=== PATIENT | female | born 1960 | race Caucasian/White ===

== ENCOUNTER 2017-11-08 06:02 | Observation (INO) | payer BC ==
[~2017-11-08 06:02] MED LIST: Buffered Lidocaine 0.9% SYRIN* 5 ML/SYR SYRINGE INTRADERM ONE; Dexamethasone IV* 4 MG/ML 1 ML (4 MG) IV SLOW PU ONE; Famotidine IV* 10 MG/ML 2 ML (20 mg) IV ONE
[2017-11-08] MEDS ORDERED: Famotidine IV* 10 MG/ML 2 ML (20 mg) ONE (06:08)
[2017-11-08] MEDS ORDERED: Dexamethasone IV* 4 MG/ML 1 ML (4 MG) ONE (06:08)
[2017-11-08] MEDS ORDERED: Buffered Lidocaine 0.9% SYRIN* 5 ML/SYR SYRINGE ONE (06:08)
[2017-11-08] MEDS ORDERED: ceFAZolin 2 GM PREMIX (*) 2 GM/50 ML BAG IVPB ONE (06:09)
[2017-11-08] MEDS ORDERED: Lidocaine 1% MPF wEPI 200,000* 30 ML SDV ONE (07:21)
[2017-11-08] MEDS ORDERED: Thrombin 5,000 UNITS* 1 APPLIC KIT - topical use - TOPICAL ONE (07:21)
[2017-11-08] MEDS ORDERED: Bacitracin IV* 50,000 UNITS INJ ONE (07:21)
[2017-11-08] MEDS ORDERED: fentaNYL* 50 MCG/ML 5 ML VIAL (250 MCG VIAL) ONE (07:23)
[2017-11-08] MEDS ORDERED: Ondansetron INJ* 2 MG/ML VIAL ONE (07:23)
[2017-11-08] MEDS ORDERED: Propofol* 10 MG/ML 20 ML BTL IV PUSH ONE (07:23)
[2017-11-08] MEDS ORDERED: Midazolam* 1 MG/ML 10 ML VIAL (10 MG) ONE (07:23)
[2017-11-08] MEDS ORDERED: Atracurium* 10 MG/ML 10 ML VIAL ONE (07:23)
[2017-11-08] MEDS ORDERED: Lidocaine 2% PF * 5 ML VIAL ONE (07:23)
[2017-11-08] MEDS ORDERED: fentaNYL* 50 MCG/ML 2 ML VIAL (100 MCG VIAL) ONE (09:19)
[2017-11-08] MEDS ORDERED: Glycopyrrolate IV* 0.2 MG/ML 1 ML VIAL ONE (09:20)
[2017-11-08] MEDS ORDERED: EPHEDrine (Pressors)* 50 MG/ML VIAL ONE (09:25)
[2017-11-08] MEDS ORDERED: DiMENhydriNATE IV* 50 MG/ML VIAL IV PUSH PRN (09:58)
[2017-11-08] MEDS ORDERED: Ondansetron INJ* 2 MG/ML VIAL IV PRN ×2 (09:58→11:15)
[2017-11-08] MEDS ORDERED: oxyCODONE/Acetamin 5/325 MG* TAB PO PRN (09:58)
[2017-11-08] MEDS ORDERED: fentaNYL* 50 MCG/ML 2 ML VIAL (100 MCG VIAL) IV PRN (09:58)
[2017-11-08] MEDS ORDERED: Scopolamine 1.5 mg* PATCH TRANSDERM PRN (09:58)
[2017-11-08] MEDS ORDERED: Magnesium Hydroxide LIQ* 30 ML UDC PO PRN (11:15)
[2017-11-08] MEDS ORDERED: Acetaminophen TAB* 325 MG PO PRN (11:15)
[2017-11-08] MEDS ORDERED: HYDROcodone/ACETAMIN 5-325 MG* 1 TAB PO PRN (11:19)
[2017-11-08] MEDS ORDERED: HYDROmorphone INJ* 1 MG/ML CARPUJECT SYRINGE ONE (11:24)
[2017-11-08] MEDS: HYDROmorphone INJ* 1 MG/ML CARPUJECT SYRINGE IV PRN ×5 (11:28→11:57)
--- NOTE | 2017-11-08 11:53 | RAD ---
CPT II Codes: 6045F INDICATION: Intraoperative lumbar discectomy. Fluoroscopic services provided for referring physician. 4 spot images demonstrates localization of L3-L4 interspace. 28 seconds of fluoroscopy time was used. IMPRESSION: Localization of the L3-L4 interspace.
[2017-11-08] MEDS ORDERED: HYDROcodone/ACETAMIN 5-325 MG* 1 TAB ONE (13:22)
[2017-11-08] MEDS: HYDROcodone/ACETAMIN 5-325 MG* 1 TAB PO PRN ×3 (13:23→22:19)
[2017-11-09] MEDS: HYDROcodone/ACETAMIN 5-325 MG* 1 TAB PO PRN ×3 (04:13→11:59)
[2017-11-09] MEDS ORDERED: amLODIPine TAB* 5 MG PO SCH (09:00)
--- NOTE | 2017-11-09 11:01 | PN ---
Progress Note - Progress Note Date of Service: 11/09/17 SOAP: Subjective: []No events ON. LLE pain resolved. Ambulates well. Voids. Tolerates PO well. Patient very satisfied with results of operation and wants to go home. Objective: []VSS, Afebrile. Wound s,c,d AAOx3 LAKSHMI, CN II-XII grossly intact Motor 5/5 all extremities. Sensory grossly intact to light touch. Assessment: []57 yo f POD#1 Left far lateral discectomy Plan: []Encourage ambulation DC today. Full instructions were given to patient.
[2017-11-09 11:45] VITALS: BP 115/67
--- NOTE | 2017-11-09 15:31 | OP ---
OPERATIVE REPORT: DATE OF OPERATION: 11/08/17 DATE OF : 62 SURGEON: Marco Abreu MD DATA ANALYSIS INTERN: DORIS Villasenor ANESTHESIA: General. PRE-OP DIAGNOSIS: Left L3-4 herniated nucleus pulposus. POST-OP DIAGNOSIS: Left L3-4 herniated nucleus pulposus. OPERATIVE PROCEDURE: The patient underwent left far lateral L3-L4 minimally invasive diskectomy. ESTIMATED BLOOD LOSS: 50 cc. COMPLICATIONS: None. SUMMARY: The patient is a very pleasant 57-year-old female with complaints of left lower extremity pain. The patient had MRI findings consistent with far lateral disk herniation at the left L3-4 level. After failing conservative treatment modalities, she was offered the option of surgical intervention in the form of left far lateral diskectomy. After explaining expectations, limitation, possible complications of procedure, with complications included but not limited to bleeding, infection, risk of damage to adjacent structures, paralysis, , need for additional procedures, anesthesia risk, stroke, blindness, cancer, instability, need for additional procedure in the future, the patient was agreeable to proceed with surgery. Informed consent was obtained. This was discussed also with the patient's domestic partner. The patient and her partner understood that her condition may not improve and in fact may get worse after the surgery and may need some additional procedure in the future. They also understood that intraoperative plan may be modified according to intraoperative findings and conditions. DESCRIPTION OF PROCEDURE: The patient was brought to the operating room and was placed under general anesthesia by the anesthesia team. She was carefully positioned prone on the Aaron frame on the Raul table and all bony prominences were meticulously padded. Her skin was prepped and draped in the standard fashion. After appropriate surgical pause and the patient identification, a left paramedian incision over the disk space of L3-L4 was marked in the skin with the help of intraoperative fluoroscopic imaging. After infiltrating the marked incision site with local anesthetic, a #10 surgical blade was used to incise the skin and the incision was carried down to the fascia with Bovie cautery and the fascia was gently divided with Bovie cautery. Over a series of tubular dilators, the METRx tubular retractor system was introduced into the field and intraoperative fluoroscopic imaging confirmed optimal placement of the retractor in the appropriate surgical level. The intraoperative microscope was brought into the field and after exposing the lateral aspect of the L3-4 facet as well as the superior aspect of the L4 transverse process, with the use of Bovie cautery. High speed drill was used to drill a small portion of the lateral facet as well as the superior portion of the left L4 transverse process. With assistance of Kerrison punches, the foramen was entered and the superior edge of the pedicle of L4 was readily identified as well as the exiting L3 nerve root. These were gently retracted caudally and large disk protrusion was readily identified. The annulus fibrosus was incised with the use of #15 surgical blade and a lateral diskectomy was performed with the use of pituitary rongeurs and down forcing curettes. At the end of the diskectomy, irrigation was used to confirm that no residual disk fragments were remaining into the disk site. At the end of the procedure, a foraminotomy was completed with Kerrison punches and the nerve root was found to be free of any pressure phenomenon. After meticulous hemostasis was confirmed and copious irrigation, the tubular retractor was gently removed and 0 interrupted Vicryl suture was used to approximate the fascia, while 2-0 interrupted Vicryl suture was used to approximate the subcutaneous tissue, while the skin was approximated with 4-0 Monocryl and covered with Steri-Strips and sterile sponges. At the end of the procedure, all counts were reported to be correct. The patient remained hemodynamically stable throughout the case. At the end of the procedure, she was gently turned supine and extubated and was transferred to Recovery in excellent condition while she was moving all extremities very well. I was present and scrubbed during the whole procedure. The case was performed with an operative graduate assistant athletic trainer because of the complexity of the case. Mateo Abreu MD [id number]/[facility] #: [id number] TITO
--- NOTE | 2017-11-10 05:52 | DS ---
DISCHARGE SUMMARY: DATE OF ADMISSION: 11/08/17 DATE OF DISCHARGE: 11/09/17 PROCEDURE: The patient underwent left L3-4 lateral minimal invasive diskectomy on 11/08/17. PREOPERATIVE DIAGNOSIS: Left L3-4 herniated nucleus pulposus. POSTOPERATIVE DIAGNOSIS: Left L3-4 herniated nucleus pulposus. HOSPITAL COURSE: The patient is a very pleasant 57-year-old female with complaints of left lower extremity pain. The patient had MRI findings consistent with lateral left L3-4 disk herniation. She was offered the option of surgical intervention after failing conservative modalities. The patient understood the risks and benefits of the procedure and underwent the left L3-4 far lateral diskectomy on 11/08/17. The patient tolerated the procedure well and was extubated and was transferred to the floor. Postoperatively, she was able to ambulate. Her wound was clean and dry. Neurologically, she was intact and her preoperative left lower extremity pain had completely resolved. The patient was able to ambulate and she was tolerating p.o. well. She was voiding and she was felt to be ready to be discharged home. DISPOSITION: Home. FOLLOWUP: The patient will follow up in the office in 7 to 10 days. [id number]/[facility] #: [id number] TITO
[2017-11-11] MEDS ORDERED: Scopolamine PATCH Remove* 1 NOTE MISC PATCH OFF ONE (09:59)
== END 2017-11-09 14:00 | disposition home or self-care (01) ==
LOC: OR 06:02 → SSU 11:15
PROVIDERS: ADMIT Neurological Surgery; ATTEND Neurological Surgery
DX: M51.26 Other intervertebral disc displacement, lumbar region (principal); M51.36 Other intervertebral disc degeneration, lumbar region; M48.061 Spinal stenosis, lumbar region without neurogenic claudication; M47.26 Other spondylosis with radiculopathy, lumbar region; E66.9 Obesity, unspecified; I10 Essential (primary) hypertension; M54.40 Lumbago with sciatica, unspecified side; Z68.29 Body mass index [BMI] 29.0-29.9, adult
CPT/HCPCS: 76001; 94760; 96374; 96375; A9270-GY; G0378; J0690; J1100; J1170; J2001; J2250; J2405; J2704; J3010